=== PATIENT | female | born 1990 ===

== ENCOUNTER 2016-12-12 16:11 | Inpatient (IN) | payer BC, MEDICAID, OTHER ==
[2016-12-12] MEDS ORDERED: Sodium Chloride 0.9% 1,000 ML IV STA ×3 (16:58→21:35)
--- NOTE | 2016-12-12 17:00 | ED PDOC ---
HPI: Back Chief Complaint (Provider): Fever, right sided back pain History Per: Patient History/Exam Limitations: no limitations Onset/Duration Of Symptoms: Hrs Current Symptoms Are (Timing): Still Present Full Body Front + Back: 1 - Pain Severity: Moderate Pain Scale Rating Of: 6 Previous Symptoms: None Additional Complaint(s): Pt also reports body aches. <Tia Britt - Last Filed: 12/12/16 20:10> <Regina Persaud - Last Filed: 12/13/16 01:57> Time Seen by Provider: 12/12/16 16:42 Chief Complaint (Nursing): Back Pain Past Medical History Reviewed: Historical Data, Nursing Documentation, Vital Signs Vital Signs: Last Vital Signs Temp 102.4 F H 12/12/16 16:13 Pulse 127 H 12/12/16 16:13 Resp 16 12/12/16 16:13 BP 120/69 12/12/16 16:13 Pulse Ox 100 12/12/16 16:13 - Medical History PMH: Migraine - Surgical History Surgical History: No Surg Hx - Family History Family History: States: No Known Family Hx - Living Arrangements Living Arrangements: With Family - Social History Current smoker - smoking cessation education provided: No <Tia Britt - Last Filed: 12/12/16 20:10> Vital Signs: Last Vital Signs Temp 99.4 F 12/12/16 20:50 Pulse 120 H 12/12/16 20:50 Resp 18 12/12/16 20:50 BP 125/59 L 12/12/16 20:50 Pulse Ox 98 12/12/16 20:50 <Regina Persaud - Last Filed: 12/13/16 01:57> - Home Medications Home Medications: Ambulatory Orders Medication Instructions Recorded Amoxicillin/Clavulanate Pota 1 tab PO BID #14 tab 09/08/14 [Augmentin 875 mg-125 mg] Ibuprofen [Motrin Tab] 600 mg PO Q8H PRN #20 tab 12/16/14 Oxycodone HCl/Acetaminophen 1 tab PO Q6H PRN #15 tab 12/16/14 [Percocet 325 mg-5 mg] - Allergies Allergies/Adverse Reactions: Allergies Allergy/AdvReac Type Severity Reaction Status Date / Time No Known Allergies Allergy Verified 09/08/14 00:19 Review of Systems ROS Statement: Except As Marked, All Systems Reviewed And Found Negative Constitutional: Positive for: Fever, Chills, Malaise Gastrointestinal: Positive for: Nausea Musculoskeletal: Positive for: Back Pain <Tia Britt - Last Filed: 12/12/16 20:10> Physical Exam - Reviewed Nursing Documentation Reviewed: Yes Vital Signs Reviewed: Yes - Physical Exam Appears: Positive for: Well, Non-toxic, No Acute Distress Head Exam: Positive for: ATRAUMATIC, NORMAL INSPECTION, NORMOCEPHALIC Skin: Positive for: Normal Color, Warm, DRY Eye Exam: Positive for: Normal appearance ENT: Positive for: Normal ENT Inspection Neck: Positive for: Normal, Painless ROM Cardiovascular/Chest: Positive for: Regular Rate, Rhythm Respiratory: Positive for: Normal Breath Sounds. Negative for: Accessory Muscle Use, Respiratory Distress Gastrointestinal/Abdominal: Positive for: Normal Exam, Bowel Sounds, Soft. Negative for: Tenderness, Guarding, Rebound Back: Positive for: Normal Inspection, R CVA Tenderness Extremity: Positive for: Normal ROM Neurologic/Psych: Positive for: Alert, Oriented <Tia Britt - Last Filed: 12/12/16 20:10> - Laboratory Results Result Diagrams: 12/12/16 17:20 12/12/16 17:20 - ECG O2 Sat by Pulse Oximetry: 100 Pulse Ox Interpretation: Normal <Tia Britt - Last Filed: 12/12/16 20:10> - Laboratory Results Result Diagrams: 12/12/16 17:20 12/12/16 17:20 - Progress ED Course And Treament: Case endorsed to adjusto writer operator from [employer] [facility] pending re-eval. Patient still with pain, still tachycardic. Third IV bolus ordered, IV morphine 2mg ordered Patient reports no improvement of pain after Morphine, still tachycardic in 120' s. CT ordered, IV morphine 4mg ordered EXAM: CT Abdomen and Pelvis With Intravenous Contrast CLINICAL HISTORY: 26 years old, female; Pain; Abdominal pain; Flank; Right; Additional info: Fever , right flank pain. Sent phy. Doc. With request TECHNIQUE: Axial computed tomography images of the abdomen and pelvis with intravenous contrast. This CT exam was performed using one or more of the following dose reduction techniques : automated exposure control, adjustment of the mA and/or kV according to patient size, and/ or use of iterative reconstruction technique. Coronal and sagittal reformatted images were created and reviewed. CONTRAST: 95 mL of [id number] administered intravenously. EXAM DATE/TIME: 12/12/2016 9:41 PM COMPARISON: No relevant prior studies available. FINDINGS: ABDOMEN: Liver: Unremarkable. No mass. Gallbladder and bile ducts: Unremarkable. No calcified stones. No ductal dilation. Pancreas: Unremarkable. No mass. No ductal dilation. Spleen: Unremarkable. No splenomegaly. Adrenals: Unremarkable. No mass. Kidneys and ureters: There is heterogeneous enhancement of the right kidney with a striated nephrogram. There is no renal emphysema or abscess. There are no renal calcifications or hydronephrosis. Stomach and bowel: Unremarkable. No obstruction. No mucosal thickening. Appendix: The appendix is visualized and appears normal. PELVIS: Bladder: Unremarkable. No mass. Reproductive: There is a right ovarian cyst. ABDOMEN and PELVIS: Intraperitoneal space: Unremarkable. No free air. No significant fluid collection. Bones/joints: No acute fracture. No dislocation. Soft tissues: Unremarkable. Vasculature: Unremarkable. No abdominal aortic aneurysm. Lymph nodes: Unremarkable. No enlarged lymph nodes. IMPRESSION: Findings are consistent with right-sided pyelonephritis.Clinical correlation is advised. On re-eval, patient notes some improvement of pain, HR still elevated 120's. Case discussed with Dr. Chavez, medical service on-call, for admission; recommends adding IV Cipro. <Regina Persaud - Last Filed: 12/13/16 01:57> Medical Decision Making Medical Decision Makin:10 - Pt afebrile but continues to be tachycardia. Second liter ordered. Endorsed pending re-evaluation. <Tia Britt - Last Filed: 12/12/16 20:10> Disposition - Patient ED Disposition Is Patient to be Admitted: Transfer of Care - Disposition Disposition: Transfer of Care Disposition Time: 20:11 <Tia Britt - Last Filed: 12/12/16 20:10> - Disposition Disposition Time: 00:44 <Regina Persaud - Last Filed: 12/13/16 01:57> - Clinical Impression Clinical Impression: Pyelonephritis, Tachycardia - Disposition Condition: FAIR
[2016-12-12 17:14] LABS: VENOUS BLOOD GAS BASE EXCESS 1.2 mmol/L (0.0-2.0); VENOUS BLOOD GAS PCO2 41 mmHg (40-60); VENOUS BLOOD PH 7.41 (7.32-7.43)
[2016-12-12 17:29] LABS: BASO % 0.3 % (0.0-2.0); HEMATOCRIT 36.2 % (34.0-47.0); LYMPH # 0.3 K/uL (1.0-4.3); LYMPH % 3.3 % (20.0-40.0); MEAN CELL VOLUME 85.9 fl (81.0-99.0); MEAN CORPUSCULAR HEMOGLOBIN 28.6 pg (27.0-31.0); MEAN CORPUSCULAR HGB CONC 33.2 g/dL (33.0-37.0); MONO # 0.7 K/uL (0.0-0.8); MONO % 6.5 % (0.0-10.0); NEUT # 9.2 K/uL (1.8-7.0); NEUT % 89.9 % (50.0-75.0); PLATELET COUNT 148 K/uL (130-400); RED CELL DISTRIBUTION WIDTH 14.8 % (11.5-14.5); WHITE BLOOD COUNT 10.2 K/uL (4.8-10.8)
[2016-12-12 17:41] LABS: ALB/GLOB RATIO 1.1 (1.0-2.1); ALKALINE PHOSPHATASE 40 U/L (38-126); ALT/SGPT 22 U/L (9-52); AST/SGOT 30 U/L (14-36); BILIRUBIN,TOTAL 1.5 mg/dl (0.2-1.3); BLOOD UREA NITROGEN 12 mg/dl (7-17); CALCIUM 8.7 mg/dL (8.4-10.2); CARBON DIOXIDE 23 mmol/L (22-30); CHLORIDE 102 mmol/L (98-107); GFR AFRICAN-AMERICAN > 60; GLUCOSE,RANDOM 104 mg/dL (65-105); POTASSIUM 3.4 MMOL/L (3.6-5.0); SODIUM 138 mmol/l (132-148); TOTAL PROTEIN 7.6 G/DL (6.3-8.2)
[2016-12-12 17:55] LABS: RBC URINE 22 /hpf (0-3); URINE BACTERIA OCC (<OCC); URINE BILIRUBIN NEGATIVE (NEGATIVE); URINE BLOOD LARGE (NEGATIVE); URINE COLOR YELLOW (YELLOW); URINE GLUCOSE (UA) NEG (Normal); URINE KETONE TRACE mg/dL (NEGATIVE); URINE LEUKOCYTE ESTERASE LARGE Leu/uL (Negative); URINE PROTEIN 30 mg/dL (NEGATIVE); URINE UROBILINOGEN 0.2-1.0 mg/dL (0.2-1.0); WBC URINE 341 /hpf (0-5)
[2016-12-12 18:13] LABS: BASOPHIL 1 % (0-2); NEUTROPHIL 89 % (42-75); TOTAL CELLS COUNTED 100
[2016-12-12] MEDS ORDERED: cefTRIAXone (Rocephin) 1 gm Inj ONE (18:19)
[2016-12-12] MEDS ORDERED: Iohexol 300 100 ML IJ ONE (22:41)
[2016-12-12] MEDS ORDERED: Sodium Chloride 0.9% 50 ML IV ONE (22:41)
[2016-12-13] MEDS ORDERED: Ciprofloxacin 400mg/200ml D5W 200 ML IVPB ONE ×2 (00:42→01:34)
--- NOTE | 2016-12-13 02:05 | ED PDOC ---
- Laboratory Results Result Diagrams: 12/12/16 17:20 12/12/16 17:20 - ECG ECG: Positive for: Viewed By Me (reviewed by ED attending) ECG Rhythm: Positive for: Sinus Tachycardia O2 Sat by Pulse Oximetry: 98 - Progress ED Course And Treament: Case endorsed to policy writer from [employer] [facility] pending re-eval. Patient still with pain, still tachycardic. Third IV bolus ordered, IV morphine 2mg ordered Patient reports no improvement of pain after Morphine, still tachycardic in 120' s. CT ordered, IV morphine 4mg ordered EXAM: CT Abdomen and Pelvis With Intravenous Contrast CLINICAL HISTORY: 26 years old, female; Pain; Abdominal pain; Flank; Right; Additional info: Fever , right flank pain. Sent phy. Doc. With request TECHNIQUE: Axial computed tomography images of the abdomen and pelvis with intravenous contrast. This CT exam was performed using one or more of the following dose reduction techniques : automated exposure control, adjustment of the mA and/or kV according to patient size, and/ or use of iterative reconstruction technique. Coronal and sagittal reformatted images were created and reviewed. CONTRAST: 95 mL of [id number] administered intravenously. EXAM DATE/TIME: 12/12/2016 9:41 PM COMPARISON: No relevant prior studies available. FINDINGS: ABDOMEN: Liver: Unremarkable. No mass. Gallbladder and bile ducts: Unremarkable. No calcified stones. No ductal dilation. Pancreas: Unremarkable. No mass. No ductal dilation. Spleen: Unremarkable. No splenomegaly. Adrenals: Unremarkable. No mass. Kidneys and ureters: There is heterogeneous enhancement of the right kidney with a striated nephrogram. There is no renal emphysema or abscess. There are no renal calcifications or hydronephrosis. Stomach and bowel: Unremarkable. No obstruction. No mucosal thickening. Appendix: The appendix is visualized and appears normal. PELVIS: Bladder: Unremarkable. No mass. Reproductive: There is a right ovarian cyst. ABDOMEN and PELVIS: Intraperitoneal space: Unremarkable. No free air. No significant fluid collection. Bones/joints: No acute fracture. No dislocation. Soft tissues: Unremarkable. Vasculature: Unremarkable. No abdominal aortic aneurysm. Lymph nodes: Unremarkable. No enlarged lymph nodes. IMPRESSION: Findings are consistent with right-sided pyelonephritis.Clinical correlation is advised. On re-eval, patient notes some improvement of pain, HR still elevated 120's. Case discussed with Dr. Chavez, medical service on-call, for admission; recommends adding IV Cipro. Disposition - Clinical Impression Clinical Impression: Pyelonephritis, Tachycardia - POA Present On Arrival: None - Disposition Disposition: Admitted as In-Patient Disposition Time: 00:45 Condition: FAIR
[2016-12-13 06:27] LABS: HEMATOCRIT 33.4 % (34.0-47.0); MEAN CELL VOLUME 86.9 fl (81.0-99.0); MEAN CORPUSCULAR HEMOGLOBIN 28.7 pg (27.0-31.0); MEAN CORPUSCULAR HGB CONC 33.1 g/dL (33.0-37.0); RED CELL DISTRIBUTION WIDTH 14.5 % (11.5-14.5); WHITE BLOOD COUNT 14.8 K/uL (4.8-10.8)
[2016-12-13 06:29] LABS: ALKALINE PHOSPHATASE 60 U/L (38-126); ALT/SGPT 174 U/L (9-52); AST/SGOT 268 U/L (14-36); BLOOD UREA NITROGEN 7 mg/dl (7-17); CARBON DIOXIDE 24 mmol/L (22-30); CHLORIDE 106 mmol/L (98-107); CHOLESTEROL 116 mg/dL (0-199); GFR AFRICAN-AMERICAN > 60; GLUCOSE,RANDOM 114 mg/dL (65-105); POTASSIUM 3.2 MMOL/L (3.6-5.0); SODIUM 140 mmol/l (132-148)
[2016-12-13 06:43] LABS: T4 5.99 ug/dl (5.5-11.0)
[2016-12-13 06:56] LABS: THYROID STIMULATING HORMONE 0.14 mIU/ML (0.46-4.68)
--- NOTE | 2016-12-13 08:50 | CT ---
PROCEDURE: CT Abdomen and Pelvis with contrast HISTORY: fever, right flank pain COMPARISON: None. TECHNIQUE: Contrast dose: 95 mL Omnipaque 300 Radiation dose: Total exam DLP = 963.45 mGy-cm. This CT exam was performed using one or more of the following dose reduction techniques: Automated exposure control, adjustment of the mA and/or kV according to patient size, and/or use of iterative reconstruction technique. FINDINGS: LOWER THORAX: Unremarkable. LIVER: Unremarkable. No gross lesion or ductal dilatation. GALLBLADDER AND BILE DUCTS: Unremarkable. PANCREAS: Unremarkable. No gross lesion or ductal dilatation. SPLEEN: Unremarkable. ADRENALS: Unremarkable. No mass. KIDNEYS AND URETERS: Multiple vaguely wedge-shaped areas of diminished enhancement in the right kidney consistent with pyelonephritis. No evidence of urinary tract obstruction. No renal mass or calculus. Unremarkable left kidney. No evidence of renal abscess. There is nonspecific cortical scar in the mid right kidney. VASCULATURE: Unremarkable. No aortic aneurysm. BOWEL: Unremarkable. No obstruction. No gross mural thickening. APPENDIX: Normal appendix. PERITONEUM: Unremarkable. No free fluid. No free air. LYMPH NODES: Unremarkable. No enlarged lymph nodes. BLADDER: Unremarkable. REPRODUCTIVE: Unremarkable uterus. Hemorrhagic/involuting right ovarian cyst with enhancing periphery and irregular contour. This measures 2.0 cm in diameter. BONES: Thoracolumbar levoscoliosis. No fracture. OTHER FINDINGS: None. IMPRESSION: Findings consistent with acute right pyelonephritis. No evidence of renal abscess. Hemorrhagic/involuting right ovarian cyst, 2.0 cm. Thoracolumbar levoscoliosis. Preliminary interpretation of this examination was reported by [facility] at 11:34 p.m. on 12/12/2016. There is concurrence of this report with the preliminary interpretation.
[2016-12-13] MEDS: Ciprofloxacin 400mg/200ml D5W 200 ML IVPB SCH ×2 (10:03→20:09)
[2016-12-13] MEDS ORDERED: Potassium Chloride 20 mEq ER Tab PO ONE (12:08)
--- NOTE | 2016-12-13 15:02 | CP.PCM.HP ---
History of Present Illness - History of Present Illness History of Present Illness: CC: R Flank/Back pain. 26 y/o F, came to [facility] for evaluation of R Flank pain, aching, moderate to severe intensity of 7:10, radiated to R Mid-back and lower back, associated to fever(102 F, HR:127) chills,nausea since night [employer] with no relief. Pt with no home medications. Worsening symptoms: Pain when urinating. Aggravated factor: Increased pain with deep breathing, movements/exercise and better with resting. Pt denied: Vomiting, diarrhea, CP,MCGUIRE, SOB, cough, dizziness, numbness, sick contact, recent travel. PMHx: Headache, Migraine, Sinusitis. CT Abd/Pelv showed: Acute R Pyelonephritis. Present on Admission - Present on Admission Any Indicators Present on Admission: No Review of Systems - Constitutional Constitutional: Chills, Fever - EENT Eyes: Other (negative) Ears: Other (negative) Nose/Mouth/Throat: Other (negative) - Cardiovascular Cardiovascular: Rapid Heart Rate - Respiratory Respiratory: Other (negative) - Gastrointestinal Gastrointestinal: Abdominal Pain (R LQ), Nausea - Genitourinary Genitourinary: Other (negative) - Musculoskeletal Musculoskeletal: Back Pain (R Flank) - Integumentary Integumentary: Other (negative) - Neurological Neurological: Other (negative) - Psychiatric Psychiatric: Other (negative) - Endocrine Endocrine: Other (negative) - Hematologic/Lymphatic Hematologic: Other (negative) Past Patient History - Infectious Disease Hx of Infectious Diseases: None - Past Medical History & Family History Past Medical History?: Yes Pertinent Family History: Unknown - Past Social History Smoking Status: Never Smoked Alcohol: None Drugs: Denies Home Situation {Lives}: Other (lives with other) - CARDIAC Hx Cardiac Disorders: No - PULMONARY Hx Respiratory Disorders: No - NEUROLOGICAL Hx Neurological Disorder: Yes Hx Migraine: Yes - HEENT Hx HEENT Problems: No - RENAL Hx Chronic Kidney Disease: No - ENDOCRINE/METABOLIC Hx Endocrine Disorders: No - HEMATOLOGICAL/ONCOLOGICAL Hx Blood Disorders: No - INTEGUMENTARY Hx Dermatological Problems: No - MUSCULOSKELETAL/RHEUMATOLOGICAL Hx Musculoskeletal Disorders: No - GASTROINTESTINAL Hx Gastrointestinal Disorders: No - GENITOURINARY/GYNECOLOGICAL Hx Genitourinary Disorders: No - PSYCHIATRIC Hx Psychophysiologic Disorder: No - SURGICAL HISTORY Hx Surgeries: Yes Hx Orthopedic Surgery: Yes Other/Comment: lt. knee sx., miniscus x3, rt. shoulder sx. - ANESTHESIA Hx Anesthesia: Yes Hx Anesthesia Reactions: No Hx Malignant Hyperthermia: No Has any member of the family had a problem w/ anesthesia?: No Meds Allergies/Adverse Reactions: Allergies Allergy/AdvReac Type Severity Reaction Status Date / Time No Known Allergies Allergy Verified 09/08/14 00:19 Physical Exam - Constitutional Appears: No Acute Distress - Head Exam Head Exam: NORMAL INSPECTION - Eye Exam Eye Exam: PERRL - ENT Exam ENT Exam: Normal Exam - Neck Exam Neck exam: Positive for: Normal Inspection - Respiratory Exam Respiratory Exam: NORMAL BREATHING PATTERN - Cardiovascular Exam Cardiovascular Exam: REGULAR RHYTHM - GI/Abdominal Exam GI & Abdominal Exam: Normal Bowel Sounds, Soft, Tenderness (RUQ mild). absent: Distended - Extremities Exam Extremities exam: Positive for: normal inspection - Back Exam Back exam: tenderness (R Flank) - Neurological Exam Neurological exam: Alert, Oriented x3 Additional comments: No motor sensory deficit. - Psychiatric Exam Psychiatric exam: Normal Mood - Skin Skin Exam: Warm Results - Vital Signs Recent Vital Signs: Last Vital Signs Temp 102.7 F H 12/13/16 12:36 Pulse 129 H 12/13/16 12:36 Resp 18 12/13/16 12:36 BP 106/57 L 12/13/16 12:36 Pulse Ox 98 12/13/16 12:36 reviewed J.P. - Labs Result Diagrams: 12/14/16 06:20 12/15/16 07:50 Labs: reviewed J.P. - Imaging and Cardiology CT scan - pelvis Status: Report reviewed by me ([place]) CT scan - abdomen Status: Report reviewed by me ([place]) Assessment & Plan (1) Pyelonephritis Status: Acute Priority: High (2) Fever Status: Acute Priority: High (3) Elevated liver enzymes Status: Acute (4) Thrombocytopenia Status: Acute (5) Anemia Status: Acute - Assessment and Plan (Free Text) Plan: Continue Cipro, Rocephin, Morphine and rest of Tx. F/U Blood and U C-S , CBC Platelets and Liver enzymes - Date & Time Date: 12/13/16
--- NOTE | 2016-12-13 20:18 | CARD ---
APPROVED REPORT EKG Measurement Heart [id number] <Conclusion> Sinus tachycardia Otherwise normal ECG
[2016-12-14 07:02] LABS: HEMATOCRIT 32.7 % (34.0-47.0); MEAN CELL VOLUME 86.5 fl (81.0-99.0); MEAN CORPUSCULAR HEMOGLOBIN 28.5 pg (27.0-31.0); MEAN CORPUSCULAR HGB CONC 32.9 g/dL (33.0-37.0); RED CELL DISTRIBUTION WIDTH 14.7 % (11.5-14.5); WHITE BLOOD COUNT 10.9 K/uL (4.8-10.8)
[2016-12-14] MEDS: Ciprofloxacin 400mg/200ml D5W 200 ML IVPB SCH (08:41)
--- NOTE | 2016-12-14 09:28 | US ---
HISTORY: Abnormal LFTs. COMPARISON: 12/12/2016 CT abdomen and pelvis. TECHNIQUE: Sonographic evaluation of the abdomen. FINDINGS: LIVER: Measures 12.4 cm. Patent portal vein. Portal venous flow: Hepatopetal. Unremarkeable echogenicity of the liver parenchyma. No mass. No intrahepatic bile duct dilatation. GALLBLADDER: Unremarkable. No gallstones. COMMON BILE DUCT: Measures 4 mm. No stones. No dilatation. PANCREAS: Nondiagnostic assessment of pancreas obscured by overlying bowel gas. RIGHT KIDNEY: Measures 4.3 x 11.4cm. Heterogeneous echo characteristics suggest a diffuse and infiltrative process consistent with findings on recent CT scan/pyelonephritis. LEFT KIDNEY: Measures 4 x 13.2cm. Normal echogenicity. No calculus, mass, or hydronephrosis. SPLEEN: Normal in size and contour. No mass. AORTA: No aneurysmal dilatation. IVC: Unremarkable. OTHER FINDINGS: None. IMPRESSION: Heterogeneous appearance to the right kidney consistent with findings on CT scan/pyelonephritis. Limitations of the current examination: Nondiagnostic assessment of the pancreas.
[2016-12-14 13:01] LABS: ALKALINE PHOSPHATASE 88 U/L (38-126); ALT/SGPT 159 U/L (9-52); AST/SGOT 84 U/L (14-36); BILIRUBIN,TOTAL 1.3 mg/dl (0.2-1.3); BLOOD UREA NITROGEN 7 mg/dl (7-17); CALCIUM 8.5 mg/dL (8.4-10.2); CARBON DIOXIDE 24 mmol/L (22-30); CHLORIDE 105 mmol/L (98-107); GFR AFRICAN-AMERICAN > 60; GLUCOSE,RANDOM 101 mg/dL (65-105); POTASSIUM 3.3 MMOL/L (3.6-5.0); SODIUM 139 mmol/l (132-148); TOTAL PROTEIN 6.7 G/DL (6.3-8.2)
--- NOTE | 2016-12-14 13:44 | CP.PCM.CON ---
History of Present Illness - History of Present Illness History of Present Illness: 26 years old, female; admitted with fever nausea and abd pain since 3 days [employer] with chills, flank p-ain right side and dysuria- has persistent fever despite IV antibiotics Review of Systems - Constitutional Constitutional: As Per HPI, Anorexia, Fever, Malaise - EENT Eyes: absent: As Per HPI, Blind Spots, Blurred Vision, Change in Vision, Decreased Night Vision, Diplopia, Discharge, Dry Eye, Exophthalmos, Floaters, Irritation, Itchy Eyes, Loss of Peripheral Vision, Pain, Photophobia, Requires Corrective Lenses, Sees Flashes, Spots in Vision, Tunnel Vision, Other Visual Disturbances, Loss of Vision, Other Ears: absent: As Per HPI, Decreased Hearing, Ear Discharge, Ear Pain, Tinnitus, Abnormal Hearing, Disequilibrium, Dizziness, Other Nose/Mouth/Throat: absent: As Per HPI, Epistaxis, Nasal Congestion, Nasal Discharge, Nasal Obstruction, Nasal Trauma, Nose Pain, Post Nasal Drip, Sinus Pain, Sinus Pressure, Bleeding Gums, Change in Voice, Dental Pain, Dry Mouth, Dysphagia, Halitosis, Hoarsness, Lip Swelling, Mouth Lesions, Mouth Pain, Odynophagia, Sore Throat, Throat Swelling, Tongue Swelling, Facial Pain, Neck Pain, Neck Mass, Other - Breasts Breasts: absent: As Per HPI, Change in Shape, Mass, Pain, Nipple Discharge, Nipple Inversion, Skin Changes, Swelling, Other - Cardiovascular Cardiovascular: absent: As Per HPI, Acrocyanosis, Chest Pain, Chest Pain at Rest , Chest Pain with Activity, Claudication, Diaphoresis, Dyspnea, Dyspnea on Exertion, Edema, Irregular Heart Rhythm, Pain Radiating to Arm/Neck/Jaw, Leg Edema, Leg Ulcers, Lightheadedness, Orthopnea, Palpitations, Paroxysmal Nocturnal Dyspnea, Pedal Edema, Radiating Pain, Rapid Heart Rate, Slow Heart Rate, Syncope, Other - Respiratory Respiratory: absent: As Per HPI, Cough, Dyspnea, Hemoptysis, Dyspnea on Exertion , Wheezing, Snoring, Stridor, Pain on Inspiration, Chest Congestion, Excessive Mucous Production, Change in Mucous Color, Pain with Coughing, Other - Gastrointestinal Gastrointestinal: absent: As Per HPI, Abdominal Pain, Belching, Bloating, Change in Bowel Habits, Change in Stool Character, Coffee Ground Emesis, Constipation, Cramping, Diarrhea, Dyspepsia, Dysphagia, Early Satiety, Excessive Flatus, Fecal Incontinence, Heartburn, Hematemesis, Hematochezia, Loose Stools, Melena, Nausea, Odynophagia, Temesmus, Vomiting, Other - Genitourinary Genitourinary: As Per HPI - Reproductive: Female Reproductive:Female: absent: As Per HPI, Amenorrhea, Amenorrhea/ Control, Currently Menstual, Cycle <21 Days, Cycle >35 Days, Cycle Variable, Menses 1-7 Days, Menses >/= 8 Days, Menses Variable, Cycle > 4 Weeks Between, No Menses for 6 Months, Heavy Menses, Light Menses, Normal Menses, Spotting Between Cycles , S/P Hysterectomy, Menopausal, Post Menopausal, Premenarche, Abnormal Vaginal Bleeding, Dysmenorrhea, Dyspareunia, Genital Lesions, Genital Pruritis, Pelvic Pain, Prolapse Symptoms, Sexual Dysfunction, Vaginal Discharge, Vaginal Dryness , Vaginal Odor, Vaginal Pruritis, Other - Menstruation Menstruation: absent: As Per HPI, Amenorrhea, Amenorrhea/ Control, Currently Menstual, Cycle <21 Days, Cycle >35 Days, Cycle Variable, Menses 1-7 Days, Menses >/= 8 Days, Menses Variable, Cycle > 4 Weeks Between, No Menses for 6 Months, Heavy Menses, Light Menses, Normal Menses, Spotting Between Cycles , S/P Hysterectomy, Menopausal, Post Menopausal, Premenarche, Abnormal Vaginal Bleeding, Dysmenorrhea, Other - Musculoskeletal Musculoskeletal: absent: As Per HPI, Abnormal Gait, Arthralgias, Atrophy, Back Pain, Deformity, Joint Swelling, Limited Range of Motion, Loss of Height, Muscle Cramps, Muscle Weakness, Myalgias, Neck Pain, Numbness, Radiating Pain into Limb, Stiffness, Tingling, Other - Integumentary Integumentary: absent: As Per HPI, Acne, Alopecia, Bleeding Lesions, Change in Hair, Change in Nails, Change in Pigmentation, Changing Lesions, Dry Skin, Erythema, Furuncle, Hirsutism, Lesions, New Lesions, Non-Healing Lesions, Photosensitivity, Pruritus, Rash, Skin Pain, Skin Ulcer, Sores, Striae, Swelling , Unusual Bruising, Wounds, Jaundice, Other - Neurological Neurological: absent: As Per HPI, Abnormal Gait, Abnormal Hearing, Abnormal Movements, Abnormal Speech, Behavioral Changes, Burning Sensations, Confusion, Convulsions, Disequilibrium, Dizziness, Numbness, Focal Weakness, Frequent Falls , Headaches, Lack of Coordination, Loss of Vision, Memory Loss, Paresthesias, Radicular Pain, Restless Legs, Sensory Deficit, Syncope, Tingling, Tremor, Vertigo, Weakness, Other Visual Disturbances, Other - Psychiatric Psychiatric: absent: As Per HPI, Abnormal Sleep Pattern, Anhedonia, Anxiety, Auditory Hallucinations, Behavioral Changes, Change in Appetite, Change in Libido, Confusion, Depression, Difficulty Concentrating, Hallucinations, Homicidal Ideation, Hopelessness, Irritability, Memory Loss, Mood Swings, Panic Attacks, Paranoia, Suicidal Ideation, Visual Hallucinations, Tactile Hallucinations, Other - Endocrine Endocrine: absent: As Per HPI, Change in Body Appearance, Change in Libido, Cold Intolorance, Deepening of Voice, Excessive Sweating, Fatigue, Flushing, Heat Intolorance, Increase in Ring/Shoe/Hat Size, Palpitations, Polydipsia, Polyphagia, Polyuria, Other - Hematologic/Lymphatic Hematologic: absent: As Per HPI, Easy Bleeding, Easy Bruising, Lymphadenopathy, Other Past Patient History - Infectious Disease Hx of Infectious Diseases: None - Past Medical History & Family History Past Medical History?: Yes - Past Social History Smoking Status: Never Smoked Alcohol: None Drugs: Denies Home Situation {Lives}: Other (lives with other) - CARDIAC Hx Cardiac Disorders: No - PULMONARY Hx Respiratory Disorders: No - NEUROLOGICAL Hx Neurological Disorder: Yes Hx Migraine: Yes - HEENT Hx HEENT Problems: No - RENAL Hx Chronic Kidney Disease: No - ENDOCRINE/METABOLIC Hx Endocrine Disorders: No - HEMATOLOGICAL/ONCOLOGICAL Hx Blood Disorders: No - INTEGUMENTARY Hx Dermatological Problems: No - MUSCULOSKELETAL/RHEUMATOLOGICAL Hx Musculoskeletal Disorders: No - GASTROINTESTINAL Hx Gastrointestinal Disorders: No - GENITOURINARY/GYNECOLOGICAL Hx Genitourinary Disorders: No - PSYCHIATRIC Hx Psychophysiologic Disorder: No - SURGICAL HISTORY Hx Surgeries: Yes Hx Orthopedic Surgery: Yes Other/Comment: lt. knee sx., miniscus x3, rt. shoulder sx. - ANESTHESIA Hx Anesthesia: Yes Hx Anesthesia Reactions: No Hx Malignant Hyperthermia: No Has any member of the family had a problem w/ anesthesia?: No Meds Allergies/Adverse Reactions: Allergies Allergy/AdvReac Type Severity Reaction Status Date / Time No Known Allergies Allergy Verified 09/08/14 00:19 - Medications Medications: Current Medications Acetaminophen (Tylenol 325mg Tab) 650 mg PO Q4 PRN PRN Reason: Fever >100.4 F Last Admin: 12/14/16 04:57 Dose: 650 mg Acetaminophen (Tylenol 325mg Tab) 650 mg PO Q4 PRN PRN Reason: Pain, Mild (1-3) Acetaminophen (Tylenol 325mg Tab) 650 mg PO Q4 PRN PRN Reason: Temperature Cefepime HCl 2 gm/ Sodium (Chloride) 100 mls @ 100 mls/hr IVPB Q12 MONIQUE Lactulose (Enulose) 20 gm PO DAILY PRN PRN Reason: Constipation Last Admin: 12/14/16 11:22 Dose: 20 gm Morphine Sulfate (Morphine) 2 mg IVP Q4 PRN PRN Reason: Pain, moderate (4-7) Last Admin: 12/14/16 04:34 Dose: 2 mg Morphine Sulfate (Morphine) 4 mg IVP Q4 PRN PRN Reason: Pain, severe (8-10) Last Admin: 12/13/16 22:12 Dose: 4 mg Physical Exam - Constitutional Appears: Non-toxic, Chronically Ill - Head Exam Head Exam: ATRAUMATIC, NORMAL INSPECTION, NORMOCEPHALIC - Eye Exam Eye Exam: EOMI, PERRL. absent: Scleral icterus Pupil Exam: NORMAL ACCOMODATION - ENT Exam ENT Exam: Mucous Membranes Dry, Normal External Ear Exam, Normal Oropharynx - Neck Exam Neck exam: Negative for: Lymphadenopathy, Thyromegaly - Respiratory Exam Respiratory Exam: Clear to Auscultation Bilateral - Cardiovascular Exam Cardiovascular Exam: REGULAR RHYTHM, +S1, +S2 - GI/Abdominal Exam GI & Abdominal Exam: Diminished Bowel Sounds, Distended, Guarding, Soft, Tenderness. absent: Organomegaly, Pulsatile Mass, Rebound, Rigid - Rectal Exam Rectal Exam: Deferred - Exam Exam: NORMAL INSPECTION - Extremities Exam Extremities exam: Positive for: pedal pulses present. Negative for: calf tenderness, pedal edema, tenderness - Back Exam Back exam: CVA tenderness (R). absent: CVA tenderness (L), paraspinal tenderness - Neurological Exam Neurological exam: Alert, CN II-XII Intact, Oriented x3, Reflexes Normal - Psychiatric Exam Psychiatric exam: Normal Mood - Skin Skin Exam: Dry Results - Vital Signs Recent Vital Signs: Last Vital Signs Temp 98.6 F 12/14/16 12:24 Pulse 94 H 12/14/16 12:24 Resp 18 12/14/16 12:24 BP 104/62 12/14/16 12:24 Pulse Ox 100 12/14/16 12:24 - Labs Result Diagrams: 12/14/16 06:20 12/14/16 12:41 Labs: Laboratory Results - last 24 hr 12/14/16 12/14/16 06:20 12:41 WBC 10.9 H RBC 3.79 L Hgb 10.8 L Hct 32.7 L MCV 86.5 MCH 28.5 MCHC 32.9 L RDW 14.7 H Plt Count 119 L Sodium 139 Potassium 3.3 L Chloride 105 Carbon Dioxide 24 Anion Gap 13 BUN 7 Creatinine 0.5 L Est GFR ( Amer) > 60 Est GFR (Non-Af Amer) > 60 Random Glucose 101 Calcium 8.5 Total Bilirubin 1.3 AST 84 H D ALT 159 H Alkaline Phosphatase 88 Total Protein 6.7 Albumin 3.3 L Globulin 3.4 Albumin/Globulin Ratio 1.0 Assessment & Plan (1) Fever Status: Acute Priority: High (2) Pyelonephritis Status: Acute Priority: High (3) Anemia Status: Acute (4) Elevated liver enzymes Status: Acute (5) Tachycardia Status: Acute (6) Thrombocytopenia Status: Acute (7) E coli bacteremia Status: Acute - Assessment and Plan (Free Text) Assessment: cont iv rx consider eval await ID and sensitivity switched to monotherapy with Maxepime
--- NOTE | 2016-12-14 14:32 | CP.PCM.PN ---
Subjective - Date & Time of Evaluation Date of Evaluation: 12/14/16 Time of Evaluation: 10:40 - Subjective Subjective: F/u Pyelonephritis. R Flank pain, RLQ pain Objective - Vital Signs/Intake and Output Vital Signs (last 24 hours): Temp Pulse Resp BP Pulse Ox 98.6 F 94 H 18 104/62 100 12/14/16 12:24 12/14/16 12:24 12/14/16 12:24 12/14/16 12:24 12/14/16 12:24 - Medications Medications: Current Medications Acetaminophen (Tylenol 325mg Tab) 650 mg PO Q4 PRN PRN Reason: Fever >100.4 F Last Admin: 12/14/16 04:57 Dose: 650 mg Acetaminophen (Tylenol 325mg Tab) 650 mg PO Q4 PRN PRN Reason: Pain, Mild (1-3) Acetaminophen (Tylenol 325mg Tab) 650 mg PO Q4 PRN PRN Reason: Temperature Cefepime HCl 2 gm/ Sodium (Chloride) 100 mls @ 100 mls/hr IVPB Q12 MONIQUE Lactulose (Enulose) 20 gm PO DAILY PRN PRN Reason: Constipation Last Admin: 12/14/16 11:22 Dose: 20 gm Morphine Sulfate (Morphine) 2 mg IVP Q4 PRN PRN Reason: Pain, moderate (4-7) Last Admin: 12/14/16 04:34 Dose: 2 mg Morphine Sulfate (Morphine) 4 mg IVP Q4 PRN PRN Reason: Pain, severe (8-10) Last Admin: 12/13/16 22:12 Dose: 4 mg - Labs Labs: 12/14/16 06:20 12/14/16 12:41 - Constitutional Appears: No Acute Distress - Head Exam Head Exam: NORMAL INSPECTION - Eye Exam Eye Exam: PERRL - ENT Exam ENT Exam: Normal Oropharynx - Neck Exam Neck Exam: Normal Inspection - Respiratory Exam Respiratory Exam: NORMAL BREATHING PATTERN - Cardiovascular Exam Cardiovascular Exam: REGULAR RHYTHM - GI/Abdominal Exam GI & Abdominal Exam: Soft, Tenderness (RLQ mild), Normal Bowel Sounds. absent: Guarding, Rebound - Extremities Exam Extremities Exam: Normal Inspection - Back Exam Back Exam: NORMAL INSPECTION, tenderness (R Flank) - Neurological Exam Neurological Exam: Alert, Oriented x3. absent: Motor Sensory Deficit - Psychiatric Exam Psychiatric exam: Normal Mood - Skin Skin Exam: Warm Assessment and Plan (1) Pyelonephritis Status: Acute (2) Fever Status: Acute (3) Elevated liver enzymes Status: Acute (4) Thrombocytopenia Status: Acute (5) Anemia Status: Acute (6) E coli bacteremia Status: Acute - Assessment and Plan (Free Text) Plan: Blood C-S E Coli , Liver enzymes decreasing , ECHO, Pelvic US , ID consult
[2016-12-14] MEDS ORDERED: Potassium Chloride 20 mEq ER Tab PO ONE (17:45)
--- NOTE | 2016-12-14 18:39 | CARD ---
APPROVED REPORT EXAM: Two-dimensional and M-mode echocardiogram with Doppler and color Doppler. Other Information Quality : GoodRhythm : NSR INDICATION Infection:Subacute bacterial endocarditis 2D DIMENSIONS IVSd1.03 (0.7-1.1cm)LVDd5.25 (3.9-5.9cm) LVOT Diameter2.21 (1.8-2.4cm)PWd1.03 (0.7-1.1cm) IVSs1.77 (0.8-1.2cm)LVDs3.20 (2.5-4.0cm) FS (%) 39.1 %PWs1.70 (0.8-1.2cm) LVEF (%)55.0 (>50%) M-Mode DIMENSIONS Left Atrium (MM)3.38 (2.5-4.0cm)IVSd0.88 (0.7-1.1cm) Aortic Root2.47 (2.2-3.7cm)LVDd5.59 (4.0-5.6cm) Aortic Cusp Exc.2.09 (1.5-2.0cm)PWd0.68 (0.7-1.1cm) IVSs1.03 cmFS (%) 34 % LVDs3.71 (2.0-3.8cm)PWs1.26 cm Mitral Valve E/A ratio0.0 TDI E/Lateral E'0.0E/Medial E'0.0 Pulmonary Valve PV Peak Evzxgkec619.4cm/s Tricuspid Valve TR Peak [id number]/sRAP [id number] Peak Gr.12mmHg [id number] LEFT VENTRICLE The left ventricle is normal size. There is normal left ventricular wall thickness. The left ventricular function is normal. The left ventricular ejection fraction is within the normal range. There is normal LV segmental wall motion. The left ventricular diastolic function is normal. RIGHT VENTRICLE The right ventricle is normal size. There is normal right ventricular wall thickness. The right ventricular systolic function is normal. ATRIA The left atrium size is normal. The right atrium size is normal. AORTIC VALVE The aortic valve is not well visualized. No aortic regurgitation is present. There is no aortic valvular stenosis. MITRAL VALVE The mitral valve is moderately thickened and is suspicious of a vegitation There is no mitral valve stenosis. Mitral regurgitation is trace. TRICUSPID VALVE The tricuspid valve is normal in structure There is mild tricuspid regurgitation. PULMONIC VALVE The pulmonary valve is normal in structure and function. There is no pulmonic valvular regurgitation. GREAT VESSELS The aortic root is normal in size. The IVC is normal in size and collapses >50% with inspiration. PERICARDIAL EFFUSION The pericardium appears normal. <Conclusion> The mitral valve is moderately thickened and is suspicious of a vegitation Mitral regurgitation is trace.
[2016-12-14] MEDS: Cefepime 2 GM in Sodium Chloride 0.9% 100 ML IVPB SCH (20:55)
[2016-12-14] MEDS: Acyclovir 5% OINT 15 APPLIC/15 GM TOP SCH (21:00)
[2016-12-15] MEDS: Acyclovir 5% OINT 15 APPLIC/15 GM TOP SCH ×6 (02:43→22:17)
[2016-12-15 08:37] LABS: ALB/GLOB RATIO 0.9 (1.0-2.1); ALKALINE PHOSPHATASE 93 U/L (38-126); ALT/SGPT 125 U/L (9-52); AST/SGOT 46 U/L (14-36); BILIRUBIN,TOTAL 0.9 mg/dl (0.2-1.3); BLOOD UREA NITROGEN 7 mg/dl (7-17); CALCIUM 8.6 mg/dL (8.4-10.2); CARBON DIOXIDE 22 mmol/L (22-30); CHLORIDE 106 mmol/L (98-107); GFR AFRICAN-AMERICAN > 60; GLUCOSE,RANDOM 90 mg/dL (65-105); POTASSIUM 3.8 MMOL/L (3.6-5.0); SODIUM 142 mmol/l (132-148)
[2016-12-15] MEDS: Cefepime 2 GM in Sodium Chloride 0.9% 100 ML IVPB SCH ×2 (08:48→21:51)
--- NOTE | 2016-12-15 10:23 | US ---
HISTORY: Tenderness COMPARISON: None available. TECHNIQUE: Transabdominal pelvic ultrasound was performed. FINDINGS: UTERUS: Measures 7.4 x 3.4 x 5.2 cm. Anteverted, normal in size and appearance. No fibroid or other mass lesion seen. ENDOMETRIUM: Measures 10 mm in diameter. Unremarkable. CERVIX: No cervical abnormality identified. RIGHT OVARY: Measures 3.3 x 2.6 x 2.3 cm. No solid mass. Normal flow. LEFT OVARY: Measures 3.6 x 1.5 x 2.7 cm. No solid mass. Normal flow. FREE FLUID: No significant free fluid noted. OTHER FINDINGS: None. IMPRESSION: Normal pelvic ultrasound.
[2016-12-15] MEDS: Mag&Al/Simet/Diphen/Lido 237 ML KIT PO SCH ×3 (12:59→21:51)
--- NOTE | 2016-12-15 14:41 | CON ---
DATE: 12/15/2016 REASON FOR CONSULTATION: Rule out bacterial endocarditis. 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 She presented because right flank pain, fever and c hills. The patient was diagnosed with acute right pyelonephritis. Blood culture and urine culture w as positive for E. coli and echocardiograph study was performed and was consistent with moderately th ickened mitral leaflet, suspicious for vegetation, with trace mitral insufficiency; however, no defin itive vegetation was seen. The patient denies any recent procedure or endoscopy and had no history o f indwelling catheter. The patient denies any prior cardiac history. SOCIAL HISTORY: The patient is a nonsmoker. She is occasional drinker. 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 HOME MEDICATIONS: The patient was on Saxenda. CURRENT HOSPITAL MEDICATIONS: Cefepime 2 grams q. 12 hours, lactulose 20 mg p.o. once a day, morphin e sulfate 2 mg intravenously q. 4 hours p.r.n., Tylenol 650 mg q. 6 hours p.r.n., Zovirax 5% ointment . REVIEW OF SYSTEMS: No dizziness or syncope. No vomiting or diarrhea. No palpitation or chest pain. No productive cough. PHYSICAL EXAMINATION: GENERAL: The patient is a young female who does not appear to be in acute distress. VITAL SIGNS: Blood pressure 118/74, heart rate 90, temperature 99.3, respirations 18. HEENT: Normocephalic. NECK: No JVD. CHEST: Clear. CARDIOVASCULAR: S1, S2 regular. No gallop, no rub or murmur. ABDOMEN: Soft. EXTREMITIES: No edema. LABORATORIES: Today's hemoglobin and hematocrit 10.8 and 32.7, white count 10.9, platelet count 119. SMA-7: Sodium 142, potassium 3.8, chloride 106, CO2 22, glucose 90, BUN 7, creatinine 0.5. Liver enzymes were elevated on admission and the trend is improving. The AST and ALT today are 46 and 125 respectively. TSH level is below normal at 0.14. Hepatitis profile is negative. EKG revealed sinus tachycardia at rate of 107. Pelvic ultrasound was unremarkable. Abdomen and pelv is IV contrast CT scan was consistent with finding consistent with acute right pyelonephritis, no abelardo dence of renal abscess. Hemorrhagic involving the right ovarian cyst. Abdominal ultrasound was cons istent with heterogeneous appearance of the right kidney consistent with CT scan finding of pyeloneph ritis. ASSESSMENT: 1. Acute pyelonephritis. 2. Escherichia coli bacteremia. 3. Thickened mitral valve leaflets, rule out bacterial endocarditis. 4. Mild anemia and thrombocytopenia. RECOMMENDATIONS: Continue current IV cefepime. I will review the side effects of Saxenda, although I did have a preliminary review from the company, who stated that the cardiovascular effects are not studied. Transesophageal echocardiograph study was discussed with the patient, who understood them a nd will be scheduled for early next week. The case was discussed with Dr. Chavez, the primary physici an. Ricco Rasmussen MD cc: [id number] TT: 12/15/2016 14:41:20 Confirmation # [id number] Dictation # [id number]
--- NOTE | 2016-12-15 16:44 | CP.PCM.PN ---
Subjective - Date & Time of Evaluation Date of Evaluation: 12/15/16 Time of Evaluation: 08:00 - Subjective Subjective: blood and urine + for e coli cont iv rx for now cardio eval in progress Objective - Vital Signs/Intake and Output Vital Signs (last 24 hours): Temp Pulse Resp BP Pulse Ox 99.8 F H 94 H 20 106/70 97 12/15/16 15:44 12/15/16 15:44 12/15/16 15:44 12/15/16 15:44 12/15/16 15:44 - Medications Medications: Current Medications Acetaminophen (Tylenol 325mg Tab) 650 mg PO Q4 PRN PRN Reason: Fever >100.4 F Last Admin: 12/14/16 21:10 Dose: 650 mg Acetaminophen (Tylenol 325mg Tab) 650 mg PO Q4 PRN PRN Reason: Pain, Mild (1-3) Acetaminophen (Tylenol 325mg Tab) 650 mg PO Q4 PRN PRN Reason: Temperature Acyclovir (Zovirax 5% Oint) 1 applic TOP Q4 MONIQUE Last Admin: 12/15/16 16:04 Dose: 1 applic Cefepime HCl 2 gm/ Sodium (Chloride) 100 mls @ 100 mls/hr IVPB Q12 MONIQUE Last Admin: 12/15/16 08:48 Dose: 100 mls/hr Lactulose (Enulose) 20 gm PO DAILY PRN PRN Reason: Constipation Last Admin: 12/14/16 11:22 Dose: 20 gm Morphine Sulfate (Morphine) 2 mg IVP Q4 PRN PRN Reason: Pain, moderate (4-7) Last Admin: 12/14/16 04:34 Dose: 2 mg Morphine Sulfate (Morphine) 4 mg IVP Q4 PRN PRN Reason: Pain, severe (8-10) Last Admin: 12/15/16 16:18 Dose: 4 mg Saliva Substitute (First Magic Mouthwash) 10 ml PO Q6 MONIQUE Last Admin: 12/15/16 16:04 Dose: 10 ml - Labs Labs: 12/14/16 06:20 12/15/16 07:50 Assessment and Plan (1) Fever Status: Acute (2) Pyelonephritis Status: Acute (3) Anemia Status: Acute (4) Elevated liver enzymes Status: Acute (5) Tachycardia Status: Acute (6) Thrombocytopenia Status: Acute (7) E coli bacteremia Status: Acute
--- NOTE | 2016-12-15 20:42 | CP.PCM.PN ---
Subjective - Date & Time of Evaluation Date of Evaluation: 12/15/16 Time of Evaluation: 10:40 - Subjective Subjective: F/U Pyelonephritis. Pt with pain in R flank and RLQ improved. TMAx yesterday 100.9F Objective - Vital Signs/Intake and Output Vital Signs (last 24 hours): Temp Pulse Resp BP Pulse Ox 98.7 F 99 H 20 110/68 98 12/15/16 19:18 12/15/16 19:18 12/15/16 19:18 12/15/16 19:18 12/15/16 19:18 - Medications Medications: Current Medications Acetaminophen (Tylenol 325mg Tab) 650 mg PO Q4 PRN PRN Reason: Fever >100.4 F Last Admin: 12/14/16 21:10 Dose: 650 mg Acetaminophen (Tylenol 325mg Tab) 650 mg PO Q4 PRN PRN Reason: Pain, Mild (1-3) Acetaminophen (Tylenol 325mg Tab) 650 mg PO Q4 PRN PRN Reason: Temperature Acyclovir (Zovirax 5% Oint) 1 applic TOP Q4 MONIQUE Last Admin: 12/15/16 16:04 Dose: 1 applic Cefepime HCl 2 gm/ Sodium (Chloride) 100 mls @ 100 mls/hr IVPB Q12 MONIQUE Last Admin: 12/15/16 08:48 Dose: 100 mls/hr Lactulose (Enulose) 20 gm PO DAILY PRN PRN Reason: Constipation Last Admin: 12/14/16 11:22 Dose: 20 gm Morphine Sulfate (Morphine) 2 mg IVP Q4 PRN PRN Reason: Pain, moderate (4-7) Last Admin: 12/14/16 04:34 Dose: 2 mg Morphine Sulfate (Morphine) 4 mg IVP Q4 PRN PRN Reason: Pain, severe (8-10) Last Admin: 12/15/16 16:18 Dose: 4 mg Saliva Substitute (First Magic Mouthwash) 10 ml PO Q6 MONIQUE Last Admin: 12/15/16 16:04 Dose: 10 ml - Labs Labs: 12/14/16 06:20 12/15/16 07:50 - Constitutional Appears: No Acute Distress - Head Exam Head Exam: NORMAL INSPECTION - Eye Exam Eye Exam: PERRL - ENT Exam ENT Exam: Normal Oropharynx - Neck Exam Neck Exam: Normal Inspection - Respiratory Exam Respiratory Exam: NORMAL BREATHING PATTERN - Cardiovascular Exam Cardiovascular Exam: REGULAR RHYTHM - GI/Abdominal Exam GI & Abdominal Exam: Soft, Tenderness (RLQ), Normal Bowel Sounds. absent: Guarding, Rebound - Extremities Exam Extremities Exam: Normal Inspection - Back Exam Back Exam: tenderness (R flank) - Neurological Exam Neurological Exam: Alert, Oriented x3. absent: Motor Sensory Deficit - Psychiatric Exam Psychiatric exam: Normal Mood - Skin Skin Exam: Warm Assessment and Plan (1) Pyelonephritis Status: Acute (2) Fever Status: Acute (3) Elevated liver enzymes Status: Acute (4) Thrombocytopenia Status: Acute (5) Anemia Status: Acute (6) E coli bacteremia Status: Acute - Assessment and Plan (Free Text) Plan: Echo: Possible vegetation, Continue Cefepime, Morphine, Zovirax and rest of Tx. ID consult appreciated, Cardiology consult appreciated, to have SHOSHANA next week , Liver enzymes improved
[2016-12-16] MEDS: Acyclovir 5% OINT 15 APPLIC/15 GM TOP SCH ×6 (00:33→21:30)
[2016-12-16] MEDS: Mag&Al/Simet/Diphen/Lido 237 ML KIT PO SCH ×4 (06:00→21:28)
[2016-12-16] MEDS: Cefepime 2 GM in Sodium Chloride 0.9% 100 ML IVPB SCH ×2 (09:04→21:29)
[2016-12-16] MEDS ORDERED: Oxycodone/Acetaminophen 5/325 mg Tab PO PRN (10:52)
--- NOTE | 2016-12-16 11:51 | PN ---
DATE: 12/16/2016 SUBJECTIVE: The patient denies any chest pain or shortness of breath. She has mild right flank pain . PHYSICAL EXAMINATION: VITAL SIGNS: Blood pressure 112/74, heart rate 85, temperature 98.5, respirations 18. HEENT: Pale conjunctivae. CHEST: Clear. HEART: S1, S2 regular. No murmurs. ABDOMEN: Soft. EXTREMITIES: No edema. ASSESSMENT: 1. Right pyelonephritis. 2. Rule out bacterial endocarditis. 3. Escherichia coli bacteremia. RECOMMENDATIONS: Continue current IV cefepime at 2 grams q. 12 hours. Continue local acyclovir. Co ntinue Tylenol p.r.n. for fever above 100.4. The patient is scheduled for transesophageal echo at [facility] at 9:00 a.m. on Monday. Ricco Rasmussen MD cc: [id number] TT: 12/16/2016 11:51:30 Confirmation # [id number] Dictation # [id number]
--- NOTE | 2016-12-16 14:09 | CP.PCM.PN ---
Subjective - Date & Time of Evaluation Date of Evaluation: 12/16/16 Time of Evaluation: 09:00 - Subjective Subjective: improving iv rx reordered for SHOSHANA Monday Objective - Vital Signs/Intake and Output Vital Signs (last 24 hours): Temp Pulse Resp BP Pulse Ox 97.9 F 66 18 102/63 98 12/16/16 12:00 12/16/16 12:00 12/16/16 12:00 12/16/16 12:00 12/16/16 12:00 Intake and Output: 12/16/16 12/16/16 06:59 18:59 Intake Total 340 Output Total 300 Balance 40 - Medications Medications: Current Medications Acetaminophen (Tylenol 325mg Tab) 650 mg PO Q4 PRN PRN Reason: Fever >100.4 F Last Admin: 12/14/16 21:10 Dose: 650 mg Acetaminophen (Tylenol 325mg Tab) 650 mg PO Q4 PRN PRN Reason: Pain, Mild (1-3) Acetaminophen (Tylenol 325mg Tab) 650 mg PO Q4 PRN PRN Reason: Temperature Acyclovir (Zovirax 5% Oint) 1 applic TOP Q4 [facility] Last Admin: 12/16/16 14:01 Dose: 1 applic Cefepime HCl 2 gm/ Sodium (Chloride) 100 mls @ 100 mls/hr IVPB Q12 [facility] Last Admin: 12/16/16 09:04 Dose: 100 mls/hr Lactulose (Enulose) 20 gm PO DAILY PRN PRN Reason: Constipation Last Admin: 12/14/16 11:22 Dose: 20 gm Morphine Sulfate (Morphine) 2 mg IVP Q4 PRN PRN Reason: Pain, severe (8-10) Oxycodone/Acetaminophen (Percocet 5/325 Mg Tab) 1 tab PO Q4 PRN PRN Reason: Pain, moderate (4-7) Stop: 12/19/16 10:53 Saliva Substitute (First Magic Mouthwash) 10 ml PO Q6 [facility] Last Admin: 12/16/16 09:05 Dose: 10 ml - Labs Labs: 12/14/16 06:20 12/15/16 07:50 - Constitutional Appears: No Acute Distress - Head Exam Head Exam: NORMOCEPHALIC - Eye Exam Eye Exam: PERRL. absent: Scleral icterus - ENT Exam ENT Exam: Mucous Membranes Dry - Neck Exam Neck Exam: absent: Lymphadenopathy - Respiratory Exam Respiratory Exam: Decreased Breath Sounds, Clear to Ausculation Bilateral - Cardiovascular Exam Cardiovascular Exam: REGULAR RHYTHM, +S1, +S2 - GI/Abdominal Exam GI & Abdominal Exam: Distended, Soft. absent: Tenderness - Rectal Exam Rectal Exam: Deferred - Exam Exam: NORMAL INSPECTION - Extremities Exam Extremities Exam: absent: Calf Tenderness, Pedal Edema - Back Exam Back Exam: absent: CVA tenderness (L), CVA tenderness (R) - Neurological Exam Neurological Exam: Alert, Awake, Oriented x3 Neuro motor strength exam: Left Upper Extremity: 5, Right Upper Extremity: 5, Left Lower Extremity: 5, Right Lower Extremity: 5 - Psychiatric Exam Psychiatric exam: Normal Mood - Skin Skin Exam: Dry Assessment and Plan (1) Fever Status: Acute (2) Pyelonephritis Status: Acute (3) Anemia Status: Acute (4) Elevated liver enzymes Status: Acute (5) Tachycardia Status: Acute (6) Thrombocytopenia Status: Acute (7) E coli bacteremia Status: Acute - Assessment and Plan (Free Text) Assessment: cont rx as per dr Chavez
--- NOTE | 2016-12-16 14:35 | CP.PCM.PN ---
Subjective - Date & Time of Evaluation Date of Evaluation: 12/16/16 Time of Evaluation: 10:40 - Subjective Subjective: F/U Pyelonephritis Pain in R flank and RLQ improved. Objective - Vital Signs/Intake and Output Vital Signs (last 24 hours): Temp Pulse Resp BP Pulse Ox 97.9 F 66 18 102/63 98 12/16/16 12:00 12/16/16 12:00 12/16/16 12:00 12/16/16 12:00 12/16/16 12:00 Intake and Output: 12/16/16 12/16/16 06:59 18:59 Intake Total 340 Output Total 300 Balance 40 - Medications Medications: Current Medications Acetaminophen (Tylenol 325mg Tab) 650 mg PO Q4 PRN PRN Reason: Fever >100.4 F Last Admin: 12/14/16 21:10 Dose: 650 mg Acetaminophen (Tylenol 325mg Tab) 650 mg PO Q4 PRN PRN Reason: Pain, Mild (1-3) Acetaminophen (Tylenol 325mg Tab) 650 mg PO Q4 PRN PRN Reason: Temperature Acyclovir (Zovirax 5% Oint) 1 applic TOP Q4 [facility] Last Admin: 12/16/16 14:01 Dose: 1 applic Cefepime HCl 2 gm/ Sodium (Chloride) 100 mls @ 100 mls/hr IVPB Q12 [facility] Last Admin: 12/16/16 09:04 Dose: 100 mls/hr Lactulose (Enulose) 20 gm PO DAILY PRN PRN Reason: Constipation Last Admin: 12/14/16 11:22 Dose: 20 gm Morphine Sulfate (Morphine) 2 mg IVP Q4 PRN PRN Reason: Pain, severe (8-10) Oxycodone/Acetaminophen (Percocet 5/325 Mg Tab) 1 tab PO Q4 PRN PRN Reason: Pain, moderate (4-7) Stop: 12/19/16 10:53 Saliva Substitute (First Magic Mouthwash) 10 ml PO Q6 [facility] Last Admin: 12/16/16 09:05 Dose: 10 ml - Labs Labs: 12/14/16 06:20 12/15/16 07:50 - Constitutional Appears: No Acute Distress - Head Exam Head Exam: NORMAL INSPECTION - Eye Exam Eye Exam: PERRL - ENT Exam ENT Exam: Normal Oropharynx - Neck Exam Neck Exam: Normal Inspection - Respiratory Exam Respiratory Exam: NORMAL BREATHING PATTERN - Cardiovascular Exam Cardiovascular Exam: REGULAR RHYTHM - GI/Abdominal Exam GI & Abdominal Exam: Soft, Tenderness (mild RLQ), Normal Bowel Sounds - Extremities Exam Extremities Exam: Normal Inspection - Back Exam Back Exam: tenderness (mild R flank) - Neurological Exam Neurological Exam: Alert, Oriented x3. absent: Motor Sensory Deficit - Psychiatric Exam Psychiatric exam: Normal Mood - Skin Skin Exam: Warm Assessment and Plan (1) Pyelonephritis Status: Acute (2) Fever Status: Acute (3) Elevated liver enzymes Status: Acute (4) Thrombocytopenia Status: Acute (5) Anemia Status: Acute (6) E coli bacteremia Status: Acute - Assessment and Plan (Free Text) Plan: Afebril today, continue Cefepime, Morphine, Oxycodone and rest of Tx. For SHOSHANA next .
[2016-12-17] MEDS: Acyclovir 5% OINT 15 APPLIC/15 GM TOP SCH ×6 (00:21→21:37)
[2016-12-17] MEDS: Mag&Al/Simet/Diphen/Lido 237 ML KIT PO SCH ×4 (05:00→21:37)
[2016-12-17] MEDS: Cefepime 2 GM in Sodium Chloride 0.9% 100 ML IVPB SCH ×2 (08:22→21:35)
--- NOTE | 2016-12-17 12:15 | CP.PCM.PN ---
Subjective - Date & Time of Evaluation Date of Evaluation: 12/17/16 Time of Evaluation: 09:00 - Subjective Subjective: less fever no N,V,D + flank pain Objective - Vital Signs/Intake and Output Vital Signs (last 24 hours): Temp Pulse Resp BP Pulse Ox 98.5 F 86 18 130/74 95 12/17/16 08:00 12/17/16 09:00 12/17/16 08:00 12/17/16 08:00 12/17/16 08:00 Intake and Output: 12/17/16 12/17/16 06:59 18:59 Intake Total 340 Balance 340 - Medications Medications: Current Medications Acetaminophen (Tylenol 325mg Tab) 650 mg PO Q4 PRN PRN Reason: Fever >100.4 F Last Admin: 12/14/16 21:10 Dose: 650 mg Acetaminophen (Tylenol 325mg Tab) 650 mg PO Q4 PRN PRN Reason: Pain, Mild (1-3) Acetaminophen (Tylenol 325mg Tab) 650 mg PO Q4 PRN PRN Reason: Temperature Acyclovir (Zovirax 5% Oint) 1 applic TOP Q4 [facility] Last Admin: 12/17/16 08:22 Dose: 1 applic Cefepime HCl 2 gm/ Sodium (Chloride) 100 mls @ 100 mls/hr IVPB Q12 [facility] Last Admin: 12/17/16 08:22 Dose: 100 mls/hr Lactulose (Enulose) 20 gm PO DAILY PRN PRN Reason: Constipation Last Admin: 12/14/16 11:22 Dose: 20 gm Morphine Sulfate (Morphine) 2 mg IVP Q4 PRN PRN Reason: Pain, severe (8-10) Last Admin: 12/17/16 10:47 Dose: 2 mg Oxycodone/Acetaminophen (Percocet 5/325 Mg Tab) 1 tab PO Q4 PRN PRN Reason: Pain, moderate (4-7) Stop: 12/19/16 10:53 Saliva Substitute (First Magic Mouthwash) 10 ml PO Q6 [facility] Last Admin: 12/17/16 10:00 Dose: 10 ml - Labs Labs: 12/14/16 06:20 12/15/16 07:50 - Constitutional Appears: Non-toxic, Chronically Ill - Head Exam Head Exam: NORMOCEPHALIC - Eye Exam Eye Exam: PERRL. absent: Scleral icterus - ENT Exam ENT Exam: Mucous Membranes Dry, Normal External Ear Exam - Neck Exam Neck Exam: absent: Lymphadenopathy - Respiratory Exam Respiratory Exam: Decreased Breath Sounds, Rhonchi - Cardiovascular Exam Cardiovascular Exam: REGULAR RHYTHM, +S1, +S2 - GI/Abdominal Exam GI & Abdominal Exam: Distended, Soft. absent: Hyperactive Bowel Sounds - Rectal Exam Rectal Exam: Deferred - Exam Exam: NORMAL INSPECTION - Back Exam Back Exam: CVA tenderness (R) Assessment and Plan (1) Fever Status: Acute (2) Pyelonephritis Status: Acute (3) Anemia Status: Acute (4) Elevated liver enzymes Status: Acute (5) Tachycardia Status: Acute (6) Thrombocytopenia Status: Acute (7) E coli bacteremia Status: Acute
--- NOTE | 2016-12-17 14:33 | CP.PCM.PN ---
Subjective - Date & Time of Evaluation Date of Evaluation: 12/17/16 Time of Evaluation: 11:50 - Subjective Subjective: F/U Pyelonephritis.Pain R flank and RUQ improved, Pt c/o of epigastric pain on and off with food. Objective - Vital Signs/Intake and Output Vital Signs (last 24 hours): Temp Pulse Resp BP Pulse Ox 98 F 83 18 102/68 99 12/17/16 12:00 12/17/16 12:00 12/17/16 12:00 12/17/16 12:00 12/17/16 12:00 Intake and Output: 12/17/16 12/17/16 06:59 18:59 Intake Total 340 Balance 340 - Medications Medications: Current Medications Acetaminophen (Tylenol 325mg Tab) 650 mg PO Q4 PRN PRN Reason: Fever >100.4 F Last Admin: 12/14/16 21:10 Dose: 650 mg Acetaminophen (Tylenol 325mg Tab) 650 mg PO Q4 PRN PRN Reason: Pain, Mild (1-3) Acetaminophen (Tylenol 325mg Tab) 650 mg PO Q4 PRN PRN Reason: Temperature Acyclovir (Zovirax 5% Oint) 1 applic TOP Q4 [facility] Last Admin: 12/17/16 12:43 Dose: 1 applic Cefepime HCl 2 gm/ Sodium (Chloride) 100 mls @ 100 mls/hr IVPB Q12 [facility] Last Admin: 12/17/16 08:22 Dose: 100 mls/hr Lactulose (Enulose) 20 gm PO DAILY PRN PRN Reason: Constipation Last Admin: 12/14/16 11:22 Dose: 20 gm Morphine Sulfate (Morphine) 2 mg IVP Q4 PRN PRN Reason: Pain, severe (8-10) Last Admin: 12/17/16 10:47 Dose: 2 mg Oxycodone/Acetaminophen (Percocet 5/325 Mg Tab) 1 tab PO Q4 PRN PRN Reason: Pain, moderate (4-7) Stop: 12/19/16 10:53 Saliva Substitute (First Magic Mouthwash) 10 ml PO Q6 [facility] Last Admin: 12/17/16 10:00 Dose: 10 ml - Labs Labs: 12/14/16 06:20 12/15/16 07:50 - Constitutional Appears: No Acute Distress - Head Exam Head Exam: NORMAL INSPECTION - Eye Exam Eye Exam: PERRL - ENT Exam ENT Exam: Normal Oropharynx - Neck Exam Neck Exam: Normal Inspection - Respiratory Exam Respiratory Exam: NORMAL BREATHING PATTERN - Cardiovascular Exam Cardiovascular Exam: REGULAR RHYTHM - GI/Abdominal Exam GI & Abdominal Exam: Soft, Tenderness (Minimal epigastric, less tenderness RLQ.) , Normal Bowel Sounds - Extremities Exam Extremities Exam: Tenderness (less R flank.) - Back Exam Back Exam: NORMAL INSPECTION - Neurological Exam Neurological Exam: Alert, Oriented x3. absent: Motor Sensory Deficit - Psychiatric Exam Psychiatric exam: Normal Mood - Skin Skin Exam: Warm Assessment and Plan (1) Pyelonephritis Status: Acute (2) Fever Status: Acute (3) Elevated liver enzymes Status: Acute (4) Thrombocytopenia Status: Acute (5) Anemia Status: Acute (6) E coli bacteremia Status: Acute - Assessment and Plan (Free Text) Plan: Continue Rocephin, Morphine, Add Mylanta, for SHOSHANA on Monday at [facility]
--- NOTE | 2016-12-17 21:40 | PN ---
DATE: 12/17/2016 The patient denies any chest pain or shortness of breath. She does report right subcostal, as well a s epigastric discomfort. VITAL SIGNS: Blood pressure 117/67, heart rate 67, temperature 98, respiration 20. HENT: Pale conjunctivae. CHEST: Clear. HEART: S1, S2 regular. ABDOMEN: Soft. EXTREMITIES: No edema. Further review of the abdomen and pelvis CT scan revealed that the gallbladder and bile ducts are unr emarkable. The liver was unremarkable, with no gross lesions or duct dilatation, and multiple vaguel y wedge-shaped areas of diminished enhancement in right kidney consistent with pyelonephritis. No ev idence of urinary tract obstruction. No renal mass or calculus. Unremarkable left kidney. The sple en was unremarkable, and the final impression was consistent with acute right pyelonephritis. Review of blood and urine culture revealed no changes, except for the positive urine culture for E. c jonathan, and 1 blood culture positive for E. coli with 3 other cultures are still negative. ASSESSMENT: 1. Gram-negative bacteremia. 2. Right pyelonephritis. 3. Rule out bacterial endocarditis. RECOMMENDATIONS: Continue current IV cefepime, continue Percocet p.r.n. There is no radiological ev idence of embolization suggestive of underlying septic emboli, according to the abdomen and pelvis CT scan. The patient will undergo a transesophageal echocardiograph study on Monday morning, and she w ill be kept n.p.o. after midnight Monday. Ricco Rasmussen MD cc: [id number] TT: 12/17/2016 21:39:47 Confirmation # [id number] Dictation # [id number]
[2016-12-18] MEDS: Acyclovir 5% OINT 15 APPLIC/15 GM TOP SCH ×6 (01:11→22:06)
[2016-12-18] MEDS: Mag&Al/Simet/Diphen/Lido 237 ML KIT PO SCH ×4 (05:59→22:00)
[2016-12-18] MEDS: Cefepime 2 GM in Sodium Chloride 0.9% 100 ML IVPB SCH ×2 (09:02→22:00)
[2016-12-18] MEDS ORDERED: Alum-Mag Hydrox-Simethicone Susp (30 mL) PO PRN (13:55)
[2016-12-18] MEDS: Pantoprazole 40 mg EC Tab PO SCH (14:26)
--- NOTE | 2016-12-18 14:27 | CP.PCM.PN ---
Subjective - Date & Time of Evaluation Date of Evaluation: 12/18/16 Time of Evaluation: 12:20 - Subjective Subjective: F/U Pyelonephritis. Afebril , Pain R Flank, RLQ improved, epigastric pain with meals Objective - Vital Signs/Intake and Output Vital Signs (last 24 hours): Temp Pulse Resp BP Pulse Ox 98.6 F 74 18 104/62 98 12/18/16 12:00 12/18/16 12:00 12/18/16 12:00 12/18/16 12:00 12/18/16 12:00 - Medications Medications: Current Medications Acetaminophen (Tylenol 325mg Tab) 650 mg PO Q4 PRN PRN Reason: Fever >100.4 F Last Admin: 12/14/16 21:10 Dose: 650 mg Acetaminophen (Tylenol 325mg Tab) 650 mg PO Q4 PRN PRN Reason: Pain, Mild (1-3) Acetaminophen (Tylenol 325mg Tab) 650 mg PO Q4 PRN PRN Reason: Temperature Acyclovir (Zovirax 5% Oint) 1 applic TOP Q4 [facility] Last Admin: 12/18/16 12:37 Dose: 1 applic Al Hydrox/Mg Hydrox/Simethicone (Maalox Plus 30 Ml) 30 ml PO Q4 PRN PRN Reason: Indigestion / Heartburn Last Admin: 12/18/16 14:26 Dose: 30 ml Cefepime HCl 2 gm/ Sodium (Chloride) 100 mls @ 100 mls/hr IVPB Q12 [facility] Last Admin: 12/18/16 09:02 Dose: 100 mls/hr Lactulose (Enulose) 20 gm PO DAILY PRN PRN Reason: Constipation Last Admin: 12/14/16 11:22 Dose: 20 gm Morphine Sulfate (Morphine) 2 mg IVP Q4 PRN PRN Reason: Pain, severe (8-10) Last Admin: 12/18/16 09:12 Dose: 2 mg Oxycodone/Acetaminophen (Percocet 5/325 Mg Tab) 1 tab PO Q4 PRN PRN Reason: Pain, moderate (4-7) Stop: 12/19/16 10:53 Pantoprazole Sodium (Protonix Ec Tab) 40 mg PO DAILY [facility] Last Admin: 12/18/16 14:26 Dose: 40 mg Saliva Substitute (First Magic Mouthwash) 10 ml PO Q6 [facility] Last Admin: 12/18/16 09:03 Dose: 10 ml - Labs Labs: 12/14/16 06:20 12/15/16 07:50 - Constitutional Appears: No Acute Distress - Head Exam Head Exam: NORMAL INSPECTION - Eye Exam Eye Exam: PERRL - ENT Exam ENT Exam: Normal Oropharynx - Neck Exam Neck Exam: Normal Inspection - Respiratory Exam Respiratory Exam: NORMAL BREATHING PATTERN - Cardiovascular Exam Cardiovascular Exam: REGULAR RHYTHM - GI/Abdominal Exam GI & Abdominal Exam: Soft, Tenderness (Less RLQ, epigastric mild tenderness), Normal Bowel Sounds - Extremities Exam Extremities Exam: Normal Inspection - Back Exam Back Exam: tenderness (Less R flank) - Neurological Exam Neurological Exam: Alert, Oriented x3. absent: Motor Sensory Deficit - Psychiatric Exam Psychiatric exam: Normal Mood - Skin Skin Exam: Warm Assessment and Plan (1) Pyelonephritis Status: Acute (2) Fever Status: Acute (3) Elevated liver enzymes Status: Acute (4) Thrombocytopenia Status: Acute (5) Anemia Status: Acute (6) E coli bacteremia Status: Acute (7) Gastritis Status: Acute - Assessment and Plan (Free Text) Plan: Continue Cifepime , Morphine , Percocet , add Mylanta , Protonix , for SHOSHANA tomorrow r/o vegetations
[2016-12-19] MEDS: Acyclovir 5% OINT 15 APPLIC/15 GM TOP SCH ×5 (00:49→16:33)
[2016-12-19] MEDS: Mag&Al/Simet/Diphen/Lido 237 ML KIT PO SCH ×3 (05:12→16:32)
[2016-12-19] MEDS: Pantoprazole 40 mg EC Tab PO SCH (12:00)
[2016-12-19] MEDS: Cefepime 2 GM in Sodium Chloride 0.9% 100 ML IVPB SCH (12:00)
--- NOTE | 2016-12-19 12:06 | CP.PCM.PN ---
Subjective - Date & Time of Evaluation Date of Evaluation: 12/19/16 Time of Evaluation: 07:00 - Subjective Subjective: SHOSHANA neg possible d/c on PO rx for 14 days Objective - Vital Signs/Intake and Output Vital Signs (last 24 hours): Temp Pulse Resp BP Pulse Ox 98.3 F 60 20 110/69 99 12/19/16 05:14 12/19/16 05:14 12/19/16 05:14 12/19/16 05:14 12/19/16 05:14 - Medications Medications: Current Medications Acetaminophen (Tylenol 325mg Tab) 650 mg PO Q4 PRN PRN Reason: Fever >100.4 F Last Admin: 12/14/16 21:10 Dose: 650 mg Acetaminophen (Tylenol 325mg Tab) 650 mg PO Q4 PRN PRN Reason: Pain, Mild (1-3) Acetaminophen (Tylenol 325mg Tab) 650 mg PO Q4 PRN PRN Reason: Temperature Acyclovir (Zovirax 5% Oint) 1 applic TOP Q4 [facility] Last Admin: 12/19/16 08:17 Dose: Not Given Al Hydrox/Mg Hydrox/Simethicone (Maalox Plus 30 Ml) 30 ml PO Q4 PRN PRN Reason: Indigestion / Heartburn Last Admin: 12/18/16 14:26 Dose: 30 ml Cefepime HCl 2 gm/ Sodium (Chloride) 100 mls @ 100 mls/hr IVPB Q12 [facility] Last Admin: 12/18/16 22:00 Dose: 100 mls/hr Lactulose (Enulose) 20 gm PO DAILY PRN PRN Reason: Constipation Last Admin: 12/14/16 11:22 Dose: 20 gm Pantoprazole Sodium (Protonix Ec Tab) 40 mg PO DAILY [facility] Last Admin: 12/18/16 14:26 Dose: 40 mg Saliva Substitute (First Magic Mouthwash) 10 ml PO Q6 [facility] Last Admin: 12/19/16 09:04 Dose: Not Given - Labs Labs: 12/14/16 06:20 12/15/16 07:50 - Constitutional Appears: Non-toxic - Head Exam Head Exam: NORMOCEPHALIC - Eye Exam Eye Exam: absent: Scleral icterus - ENT Exam ENT Exam: Mucous Membranes Dry - Neck Exam Neck Exam: absent: Lymphadenopathy, Thyromegaly - Respiratory Exam Respiratory Exam: Decreased Breath Sounds - Cardiovascular Exam Cardiovascular Exam: REGULAR RHYTHM Assessment and Plan (1) Fever Status: Acute (2) Pyelonephritis Status: Acute (3) Anemia Status: Acute (4) Elevated liver enzymes Status: Acute (5) Tachycardia Status: Acute (6) Thrombocytopenia Status: Acute (7) E coli bacteremia Status: Acute
--- NOTE | 2016-12-19 13:59 | PQF GENQUE ---
This form is a permanent part of the medical record 12/19/16 Dr. Chavez Would you please clarify the possible cause of the anemia and thrombocytopenia. Admitted with acute pyelonephritis and bacteremia. Blood and Urine CS growing E.Coli. H&H 10.8/32.7 and platelets 119,000 on 12/14/16. Treated with IVAB. Clarification of your documentation is requested to better reflect the severity of illness and intensity of treatment of your patient. PHYSICIAN'S RESPONSE Based on your medical judgment of the clinical indicators outlined above please clarify the following: [] Practitioner response [] If unable to determine, please check the box, sign and date. Present On Admission (POA) Indicator: [] Present at the time of admission [] Not present at the time of admission [] Clinically Undetermined In responding to this query, please exercise your independent professional judgment. The fact that a question is asked does not imply that any particular answer is desired or expected. Thank you for your clarification on this documentation. If you have any questions please call:[phone] * Thank you, Carole Larsen RN [facility]
[2016-12-19 14:02] LABS: HEMATOCRIT 34.9 % (34.0-47.0); MEAN CELL VOLUME 85.7 fl (81.0-99.0); MEAN CORPUSCULAR HEMOGLOBIN 28.6 pg (27.0-31.0); MEAN CORPUSCULAR HGB CONC 33.3 g/dL (33.0-37.0); RED CELL DISTRIBUTION WIDTH 14.1 % (11.5-14.5); WHITE BLOOD COUNT 5.3 K/uL (4.8-10.8)
--- NOTE | 2016-12-19 14:42 | CP.PCM.PN ---
Subjective - Date & Time of Evaluation Date of Evaluation: 12/19/16 Time of Evaluation: 12:30 - Subjective Subjective: F/U Pyelonephritis. Great improvement, minimal pain R flank, no pain RLQ. Objective - Vital Signs/Intake and Output Vital Signs (last 24 hours): Temp Pulse Resp BP Pulse Ox 98.7 F 73 18 113/75 100 12/19/16 11:35 12/19/16 12:15 12/19/16 11:35 12/19/16 11:35 12/19/16 11:35 - Medications Medications: Current Medications Acetaminophen (Tylenol 325mg Tab) 650 mg PO Q4 PRN PRN Reason: Fever >100.4 F Last Admin: 12/14/16 21:10 Dose: 650 mg Acetaminophen (Tylenol 325mg Tab) 650 mg PO Q4 PRN PRN Reason: Pain, Mild (1-3) Acetaminophen (Tylenol 325mg Tab) 650 mg PO Q4 PRN PRN Reason: Temperature Acyclovir (Zovirax 5% Oint) 1 applic TOP Q4 [facility] Last Admin: 12/19/16 13:44 Dose: 1 applic Al Hydrox/Mg Hydrox/Simethicone (Maalox Plus 30 Ml) 30 ml PO Q4 PRN PRN Reason: Indigestion / Heartburn Last Admin: 12/18/16 14:26 Dose: 30 ml Cefepime HCl 2 gm/ Sodium (Chloride) 100 mls @ 100 mls/hr IVPB Q12 [facility] Last Admin: 12/19/16 12:00 Dose: 100 mls/hr Lactulose (Enulose) 20 gm PO DAILY PRN PRN Reason: Constipation Last Admin: 12/14/16 11:22 Dose: 20 gm Pantoprazole Sodium (Protonix Ec Tab) 40 mg PO DAILY [facility] Last Admin: 12/19/16 12:00 Dose: 40 mg Saliva Substitute (First Magic Mouthwash) 10 ml PO Q6 [facility] Last Admin: 12/19/16 09:04 Dose: Not Given - Labs Labs: 12/19/16 13:54 12/15/16 07:50 - Constitutional Appears: No Acute Distress - Head Exam Head Exam: NORMAL INSPECTION - Eye Exam Eye Exam: PERRL - ENT Exam ENT Exam: Normal Oropharynx - Neck Exam Neck Exam: Normal Inspection - Respiratory Exam Respiratory Exam: NORMAL BREATHING PATTERN - Cardiovascular Exam Cardiovascular Exam: REGULAR RHYTHM - GI/Abdominal Exam GI & Abdominal Exam: Soft, Tenderness (minimal RLQ, epigastric mild tenderness.) , Normal Bowel Sounds. absent: Guarding, Rebound - Extremities Exam Extremities Exam: Normal Inspection - Back Exam Back Exam: tenderness (minimal R flank) - Neurological Exam Neurological Exam: Alert, Oriented x3. absent: Motor Sensory Deficit - Psychiatric Exam Psychiatric exam: Normal Mood - Skin Skin Exam: Warm Assessment and Plan (1) Pyelonephritis Status: Acute (2) Fever Status: Acute (3) Elevated liver enzymes Status: Acute (4) Thrombocytopenia Status: Acute (5) Anemia Status: Acute (6) E coli bacteremia Status: Acute (7) Gastritis Status: Acute - Assessment and Plan (Free Text) Plan: Echo shows: No vegetation, ID follow up appreciated, to have Cipro po bid x 10 days, Improved and stable to be discharged, off work until next Monday and on light duty x 10 days., f/u with PMD in one week.
[2016-12-19 15:30] LABS: BLOOD UREA NITROGEN 9 mg/dl (7-17); CARBON DIOXIDE 25 mmol/L (22-30); CHLORIDE 104 mmol/L (98-107); GFR AFRICAN-AMERICAN > 60; GLUCOSE,RANDOM 107 mg/dL (65-105); POTASSIUM 4.1 MMOL/L (3.6-5.0); SODIUM 142 mmol/l (132-148)
[2016-12-19 15:57] VITALS: BP 101/65; PULSE 70; RESP 20; TEMP 98.3; O2SAT 99
--- NOTE | 2016-12-20 05:00 | ED PDOC ---
HPI: General Adult Time Seen by Provider: 12/12/16 16:42 Chief Complaint (Nursing): Back Pain Chief Complaint (Provider): Back pain, pain on urination, fever History Per: Patient History/Exam Limitations: no limitations Onset/Duration Of Symptoms: Days Have you had recent travel within the past 21 days to any of the following countries: [place], [place], [place] or [place]?: No Severity: Moderate Pain Scale Rating Of: 5 Past Medical History Reviewed: Historical Data, Nursing Documentation, Vital Signs Vital Signs: Last Vital Signs Temp 98.3 F 12/19/16 15:52 Pulse 70 12/19/16 15:52 Resp 20 12/19/16 15:52 BP 101/65 12/19/16 15:52 Pulse Ox 99 12/19/16 15:52 - Medical History PMH: Migraine Denies: Chronic Kidney Disease - Surgical History Surgical History: No Surg Hx - Family History Family History: States: Unknown Family Hx - Living Arrangements Living Arrangements: With Family - Social History Current smoker - smoking cessation education provided: No Alcohol: None Drugs: Denies - Home Medications Home Medications: Ambulatory Orders Medication Instructions Recorded Ciprofloxacin [Cipro] 500 mg PO Q12 #24 tab 12/19/16 oxyCODONE/Acetaminophen [Percocet 1 ea PO BID #10 tab 12/19/16 5/325 mg Tab] - Allergies Allergies/Adverse Reactions: Allergies Allergy/AdvReac Type Severity Reaction Status Date / Time No Known Allergies Allergy Verified 09/08/14 00:19 Review of Systems Constitutional: Positive for: Fever Gastrointestinal: Positive for: Nausea, Vomiting Genitourinary Female: Positive for: Dysuria Musculoskeletal: Positive for: Back Pain Physical Exam - Reviewed Nursing Documentation Reviewed: Yes Vital Signs Reviewed: Yes - Physical Exam Appears: Positive for: Well, Non-toxic, No Acute Distress Head Exam: Positive for: ATRAUMATIC, NORMAL INSPECTION, NORMOCEPHALIC Skin: Positive for: Normal Color, Warm, DRY Eye Exam: Positive for: Normal appearance ENT: Positive for: Normal ENT Inspection Neck: Positive for: Normal, Painless ROM Cardiovascular/Chest: Positive for: Regular Rate, Rhythm Respiratory: Positive for: Normal Breath Sounds. Negative for: Accessory Muscle Use, Respiratory Distress Gastrointestinal/Abdominal: Positive for: Normal Exam, Bowel Sounds, Soft Back: Positive for: Normal Inspection, R CVA Tenderness. Negative for: L CVA Tenderness Extremity: Positive for: Normal ROM Neurologic/Psych: Positive for: Alert, Oriented - Laboratory Results Result Diagrams: 12/19/16 13:54 12/19/16 13:54 - ECG O2 Sat by Pulse Oximetry: 99 Medical Decision Making Medical Decision Making: Rocephin given for UTI. endorsed pending re-evaluation after fluids. Disposition - Clinical Impression Clinical Impression: Pyelonephritis, Tachycardia - Patient ED Disposition Is Patient to be Admitted: Transfer of Care - Disposition Disposition: Transfer of Care Disposition Time: 00:45 Condition: FAIR - POA Present On Arrival: None
== END 2016-12-19 17:20 | disposition home or self-care (01) | DRG 690 ==
LOC: H.ER 16:11 → H.ERHOLD 12-13 00:43 → H.TEL 12-13 02:54 → OBSVTOIN 12-13 12:50
PROVIDERS: ADMIT Internal Medicine Pulmonary Disease; ATTEND Internal Medicine Pulmonary Disease
PROC: B246ZZ4 Ultrasonography of Right and Left Heart, Transesophageal (ICD-10-PCS; principal; 2016-12-19)
DX: N10 Acute pyelonephritis (principal); R78.81 Bacteremia; D69.6 Thrombocytopenia, unspecified; B96.20 Unspecified Escherichia coli [E. coli] as the cause of diseases classified elsewhere; D64.9 Anemia, unspecified; K29.70 Gastritis, unspecified, without bleeding; R74.8 Abnormal levels of other serum enzymes; R00.0 Tachycardia, unspecified; I05.9 Rheumatic mitral valve disease, unspecified

== ENCOUNTER 2017-07-04 02:28 | Emergency (ER) | payer BC ==
[2017-07-04 02:50] VITALS: RESP 16; TEMP 98.9
[2017-07-04] MEDS ORDERED: Sodium Chloride 0.9% 1,000 ML IV STA (03:33)
--- NOTE | 2017-07-04 03:39 | ED PDOC ---
HPI: General Adult Time Seen by Provider: 07/04/17 03:21 Chief Complaint (Nursing): Flu-like Symptoms Chief Complaint (Provider): flu-like History Per: Patient History/Exam Limitations: no limitations Additional Complaint(s): 26yo F in ED for eval of body aches , fever, sore throat, congestion ear pain x2-3 days 11 weeks . no sick contacts. Past Medical History Reviewed: Historical Data, Nursing Documentation, Vital Signs Vital Signs: Last Vital Signs Temp 98.9 F 07/04/17 04:04 Pulse 104 H 07/04/17 02:46 Resp 16 07/04/17 02:46 BP 117/59 L 07/04/17 02:46 Pulse Ox 99 07/04/17 05:05 - Medical History PMH: Migraine Denies: Chronic Kidney Disease - Family History Family History: States: Unknown Family Hx - Home Medications Home Medications: Ambulatory Orders Medication Instructions Recorded Ciprofloxacin [Cipro] 500 mg PO Q12 #24 tab 12/19/16 oxyCODONE/Acetaminophen [Percocet 1 ea PO BID #10 tab 12/19/16 5/325 mg Tab] Oseltamivir Phosphate [Tamiflu] 75 mg PO BID #10 capsule 07/04/17 - Allergies Allergies/Adverse Reactions: Allergies Allergy/AdvReac Type Severity Reaction Status Date / Time No Known Allergies Allergy Verified 07/04/17 02:46 Review of Systems ROS Statement: Except As Marked, All Systems Reviewed And Found Negative Constitutional: Positive for: Fever, Chills, Sweats Respiratory: Positive for: Cough, Shortness of Breath Skin: Positive for: Rash Physical Exam - Reviewed Nursing Documentation Reviewed: Yes Vital Signs Reviewed: Yes - Physical Exam Appears: Positive for: Well, Non-toxic, No Acute Distress Head Exam: Positive for: ATRAUMATIC, NORMAL INSPECTION, NORMOCEPHALIC Skin: Positive for: Normal Color, Warm, DRY Cardiovascular/Chest: Positive for: Regular Rate, Rhythm Respiratory: Positive for: CNT, Normal Breath Sounds Back: Positive for: Normal Inspection Extremity: Positive for: Normal ROM Neurologic/Psych: Positive for: Alert, Oriented - Laboratory Results Result Diagrams: 07/04/17 04:31 07/04/17 04:31 - ECG O2 Sat by Pulse Oximetry: 99 - Progress ED Course And Treament: Orders Category Date Time Status COMP METABOLIC PANEL Stat Chem 07/04/17 03:33 Uncollected CBC (WITH DIFFERENTIAL) Stat FELECIA 07/04/17 03:33 Uncollected Acetaminophen [Tylenol 325mg tab] Med 07/04/17 03:50 Discontinued 650 mg .ROUTE .STK-MED ONE Acetaminophen [Tylenol 325mg tab] Med 07/04/17 03:33 Discontinued 650 mg PO STAT STA Sodium Chloride 0.9% 1,000 ml Med 07/04/17 03:33 Active IV 1,000 mls/hr INFLUENZA A B Stat Serology 07/04/17 03:33 Uncollected RAPID STREP GROUP A ANTIGEN Stat Serology 07/04/17 03:33 Uncollected Medical Decision Making Medical Decision Making: (+) influ A-will give tamiflu and fluids in ED. pt with stable VS improved in ED PT advised to have pmd f/u in 2d. Rx tamiflu and supportive care. 07/04/17 07/04/17 07/04/17 04:31 04:31 04:31 WBC RBC Hgb Hct MCV MCH MCHC RDW Plt Count MPV Neut % (Auto) Lymph % (Auto) [place] % (Auto) Eos % (Auto) Baso % (Auto) Neut # Lymph # [place] # Eos # Baso # Sodium 133 Potassium 3.9 Chloride 102 Carbon Dioxide 23 Anion Gap 12 BUN 8 Creatinine 0.5 L Est GFR ( Amer) > 60 Est GFR (Non-Af Amer) > 60 Random Glucose 91 Calcium 8.4 Total Bilirubin 0.5 AST 26 ALT 31 Alkaline Phosphatase 28 L Total Protein 7.1 Albumin 3.8 Globulin 3.4 Albumin/Globulin Ratio 1.1 Influenza Typ A,B (EIA) Pos for influenza a H Grp A Beta Strep Ag Negative 07/04/17 04:31 WBC 4.1 L RBC 3.93 Hgb 11.7 L Hct 33.4 L MCV 85.0 MCH 29.6 MCHC 34.8 RDW 13.5 Plt Count 146 D MPV 9.0 Neut % (Auto) 61.3 Lymph % (Auto) 20.7 [place] % (Auto) 17.5 H Eos % (Auto) 0.1 Baso % (Auto) 0.4 Neut # 2.5 Lymph # 0.9 L [place] # 0.7 Eos # 0.0 Baso # 0.0 Sodium Potassium Chloride Carbon Dioxide Anion Gap BUN Creatinine Est GFR ( Amer) Est GFR (Non-Af Amer) Random Glucose Calcium Total Bilirubin AST ALT Alkaline Phosphatase Total Protein Albumin Globulin Albumin/Globulin Ratio Influenza Typ A,B (EIA) Grp A Beta Strep Ag Disposition - Clinical Impression Clinical Impression: Influenza - Patient ED Disposition Is Patient to be Admitted: No Counseled Patient/Family Regarding: Studies Performed, Diagnosis, Need For Followup, Rx Given - Disposition Referrals: Marcelo Toro MD [Primary Care Provider] - Disposition: Routine/Home Disposition Time: 05:23 Condition: IMPROVED Prescriptions: Oseltamivir Phosphate [Tamiflu] 75 mg PO BID #10 capsule Instructions: Influenza (ED), Influenza Vaccine (ED) Forms: [employer] ([place]), [facility] ED School/Work Excuse
[2017-07-04 04:36] LABS: BASO % 0.4 % (0.0-2.0); EOS % 0.1 % (0.0-4.0); HEMATOCRIT 33.4 % (34.0-47.0); LYMPH # 0.9 K/uL (1.0-4.3); LYMPH % 20.7 % (20.0-40.0); MEAN CORPUSCULAR HEMOGLOBIN 29.6 pg (27.0-31.0); MEAN CORPUSCULAR HGB CONC 34.8 g/dL (33.0-37.0); MONO # 0.7 K/uL (0.0-0.8); MONO % 17.5 % (0.0-10.0); NEUT # 2.5 K/uL (1.8-7.0); NEUT % 61.3 % (50.0-75.0); NRBC % 0.1 % (0.0-0.0); RED CELL DISTRIBUTION WIDTH 13.5 % (11.5-14.5); WHITE BLOOD COUNT 4.1 K/uL (4.8-10.8)
[2017-07-04 04:48] LABS: ALB/GLOB RATIO 1.1 (1.0-2.1); ALKALINE PHOSPHATASE 28 U/L (38-126); ALT/SGPT 31 U/L (9-52); AST/SGOT 26 U/L (14-36); BILIRUBIN,TOTAL 0.5 mg/dl (0.2-1.3); BLOOD UREA NITROGEN 8 mg/dl (7-17); CALCIUM 8.4 mg/dL (8.4-10.2); CARBON DIOXIDE 23 mmol/L (22-30); CHLORIDE 102 mmol/L (98-107); GFR AFRICAN-AMERICAN > 60; GLUCOSE,RANDOM 91 mg/dL (65-105); POTASSIUM 3.9 MMOL/L (3.6-5.0); SODIUM 133 mmol/l (132-148); TOTAL PROTEIN 7.1 G/DL (6.3-8.2)
[2017-07-04 06:24] VITALS: BP 117/62; PULSE 79; O2SAT 100
== END 2017-07-04 06:25 | disposition home or self-care (01) ==
LOC: H.ER 02:28
DX: J11.1 Influenza due to unidentified influenza virus with other respiratory manifestations (principal); Z3A.11 11 weeks gestation of pregnancy
CPT/HCPCS: 80053; 85025; 87070; 87430; 87804; 96360; 99283; J7040